=== PATIENT | female | born 1930 | race Caucasian/White ===

== ENCOUNTER → 2017-11-21 | Outpatient (CLI) | payer MEDICARE | END | disposition home or self-care (01) | DX: R91.8 Other nonspecific abnormal finding of lung field (principal) | CPT/HCPCS: 71045 ==

== ENCOUNTER 2017-11-22 11:37 | Inpatient (IN) | payer MEDICARE ==
[2017-11-22 12:22] LABS: ADD MAN DIFF? NO
[2017-11-22 12:38] LABS: BILIRUBIN,URINE NEGATIVE (NEG); CLARITY,URINE CLOUDY; COLOR,URINE YELLOW; GLUCOSE,URINE NEGATIVE (NEG); NITRITE,URINE NEGATIVE (NEG); PROTEIN,URINE 100 mg/dL (NEG-TRACE)
[2017-11-22 12:40] LABS: BASO % 0 % (0-3); EOS % 0 % (0-3); HEMATOCRIT 39.1 % (36.0-47.0); HEMOGLOBIN 12.6 g/dL (12.0-15.5); LYMPH # 0.7 x10^3/uL (1.0-4.8); LYMPH % 3 % (24-48); MEAN CORPUSCULAR HEMOGLOBIN 31 pg (25-35); MEAN CORPUSCULAR HGB CONC 32 g/dL (31-37); MEAN CORPUSCULAR VOLUME 95 fL (79-100); MONO # 1.5 x10^3/uL (0.0-1.1); MONO % 6 % (0-9); NEUT # 23.6 x10^3uL (1.8-7.7); NEUT % 91 % (31-73); PLATELET COUNT 393 x10^3/uL (140-400); RED BLOOD COUNT 4.12 x10^6/uL (3.50-5.40); RED CELL DISTRIBUTION WIDTH 13.8 % (11.5-14.5); WHITE BLOOD COUNT 25.9 x10^3/uL (4.0-11.0)
[2017-11-22 12:44] LABS: ANION GAP 9 (6-14); BLOOD UREA NITROGEN 22 mg/dL (7-20); BUN/CREATININE RATIO 31 (6-20); CALCIUM 8.5 mg/dL (8.5-10.1); CARBON DIOXIDE 36 mmol/L (21-32); CHLORIDE 95 mmol/L (98-107); CREATININE 0.7 mg/dL (0.6-1.0); GFR 79.5; GLUCOSE 125 mg/dL (70-99); POTASSIUM 3.1 mmol/L (3.5-5.1); SODIUM 140 mmol/L (136-145)
[2017-11-22 12:48] LABS: BACTERIA,URINE MANY /HPF (0-FEW)
[2017-11-22] MEDS: IV NORMAL SALINE 1000ML BAG 1,000 ML IV ×6 (12:48→19:50)
[2017-11-22] MEDS: methylPREDNISolone SOD SUCC PF 125 MG/2 ML VIAL. IV ×2 (12:48)
[2017-11-22 12:49] LABS: ALBUMIN 2.5 g/dL (3.4-5.0); ALBUMIN/GLOBULIN RATIO 0.5 (1.0-1.7); ALK PHOS 73 U/L (46-116); ALT (SGPT) 33 U/L (14-59); AST (SGOT) 24 U/L (15-37); TOTAL BILIRUBIN 0.8 mg/dL (0.2-1.0); TOTAL PROTEIN 7.3 g/dL (6.4-8.2)
[2017-11-22] MEDS: IPRATRPIUM/ALBUTEROL 0.5/2.5MG 3 ML NEBU. NEB ×6 (12:54→18:10)
[2017-11-22 12:57] LABS: CKMB MASS 1.6 ng/mL (0.0-3.6); CREATINE KINASE 41 U/L (26-192)
[2017-11-22] MEDS ORDERED: PIP/TAZO PER PHARMACY MC ×2 (13:00)
[2017-11-22] MEDS ORDERED: levOFLOXacin PER PHARMACY. MC ×2 (13:00)
[2017-11-22 13:04] LABS: LACTIC ACID 1.2 mmol/L (0.4-2.0)
[2017-11-22] MEDS ORDERED: ACETAMINOPHEN 325 MG TABLET. PO ×2 (13:15)
[2017-11-22] MEDS ORDERED: ONDANSETRON PF 4 MG/2 ML VIAL. IV ×2 (13:15)
[2017-11-22] MEDS: PIPERACILLIN/TAZOBACTAM 3.375 GM in IV DEXTROSE 5% 50 ML IV (13:25)
[2017-11-22 13:44] LABS: NT-PRO BNP 1171 pg/mL (0-449)
[2017-11-22] MEDS: VANCOMYCIN 1.25 GM in IV DEXTROSE 5% 250 ML IV (14:01)
[2017-11-22 16:51] LABS: LACTIC ACID 2.7 mmol/L (0.4-2.0)
[2017-11-22] MEDS: PIPERACILLIN/TAZOBACTAM 3.375 GM in IV NORMAL SALINE 50ML 50 ML IV ×2 (17:48→23:24)
[2017-11-22] MEDS: POTASSIUM CHLORIDE 20 MEQ TABLET.ER. PO ×2 (17:49)
[2017-11-22] MEDS: methylPREDNISolone SOD SUCC PF 40 MG/ML VIAL. IV ×4 (17:49→23:24)
[2017-11-22] MEDS: BUDESONIDE 0.5 MG/2 ML NEBU. NEB ×2 (18:09)
[2017-11-22] MEDS: LACTOBACILLUS RHAMNOSUS GG 1 CAPSULE. PO ×2 (20:54)
[2017-11-22] MEDS: METOPROLOL TART IMMED RELEASE 25 MG TABLET. PO ×2 (20:55)
[2017-11-22] MEDS: amLODIPine BESYLATE 2.5 MG TABLET PO ×2 (20:55)
[2017-11-22] MEDS: LATANOPROST 0.005% OPHTH SOLUTION 2.5ML BOTTLE. OU ×2 (20:55)
[2017-11-22 23:23] LABS: LACTIC ACID 1.2 mmol/L (0.4-2.0)
[2017-11-23] MEDS: IV NORMAL SALINE 1000ML BAG 1,000 ML IV ×2 (04:19)
[2017-11-23] MEDS: methylPREDNISolone SOD SUCC PF 40 MG/ML VIAL. IV ×8 (05:41→23:52)
[2017-11-23] MEDS: PIPERACILLIN/TAZOBACTAM 3.375 GM in IV NORMAL SALINE 50ML 50 ML IV ×4 (05:41→23:51)
[2017-11-23 05:47] LABS: ADD MAN DIFF? NO
[2017-11-23 06:02] LABS: BASO % 0 % (0-3); EOS % 0 % (0-3); HEMATOCRIT 32.6 % (36.0-47.0); HEMOGLOBIN 10.8 g/dL (12.0-15.5); LYMPH # 0.3 x10^3/uL (1.0-4.8); LYMPH % 1 % (24-48); MEAN CORPUSCULAR HEMOGLOBIN 31 pg (25-35); MEAN CORPUSCULAR HGB CONC 33 g/dL (31-37); MEAN CORPUSCULAR VOLUME 95 fL (79-100); MONO # 0.4 x10^3/uL (0.0-1.1); MONO % 2 % (0-9); NEUT # 19.4 x10^3uL (1.8-7.7); NEUT % 96 % (31-73); PLATELET COUNT 353 x10^3/uL (140-400); RED BLOOD COUNT 3.43 x10^6/uL (3.50-5.40); RED CELL DISTRIBUTION WIDTH 13.5 % (11.5-14.5); WHITE BLOOD COUNT 20.1 x10^3/uL (4.0-11.0)
[2017-11-23] MEDS: LEVOTHYROXINE 75 MCG TABLET PO ×2 (06:34)
[2017-11-23 07:16] LABS: ANION GAP 9 (6-14); BLOOD UREA NITROGEN 20 mg/dL (7-20); CARBON DIOXIDE 31 mmol/L (21-32); CHLORIDE 99 mmol/L (98-107); CREATININE 0.7 mg/dL (0.6-1.0); GFR 79.5; GLUCOSE 153 mg/dL (70-99); POTASSIUM 3.7 mmol/L (3.5-5.1); SODIUM 139 mmol/L (136-145)
[2017-11-23] MEDS: IPRATRPIUM/ALBUTEROL 0.5/2.5MG 3 ML NEBU. NEB ×8 (07:57→20:14)
[2017-11-23] MEDS: BUDESONIDE 0.5 MG/2 ML NEBU. NEB ×4 (07:57→20:14)
[2017-11-23] MEDS: FAMOTIDINE 20 MG TABLET. PO ×2 (09:22)
[2017-11-23] MEDS: CHOLECALCIFEROL (VITAMIN D3) 1,000 UNIT TABLET PO ×2 (09:22)
[2017-11-23] MEDS: LACTOBACILLUS RHAMNOSUS GG 1 CAPSULE. PO ×4 (09:22→20:30)
[2017-11-23] MEDS: amLODIPine BESYLATE 2.5 MG TABLET PO ×4 (09:22→20:31)
[2017-11-23] MEDS: METOPROLOL TART IMMED RELEASE 25 MG TABLET. PO ×4 (09:22→20:31)
[2017-11-23] MEDS: CLOPIDOGREL BISULFATE 75 MG TABLET PO ×2 (09:22)
[2017-11-23] MEDS: LORazepam 0.5 MG TABLET PO ×2 (09:22)
[2017-11-23] MEDS: MULTIVITAMIN with MINERAL TABLET. PO ×2 (09:22)
[2017-11-23] MEDS: VANCOMYCIN 750 MG in IV DEXTROSE 5% 250 ML IV (15:03)
[2017-11-23 15:16] LABS: MRSA BY PCR Negative (Negative)
[2017-11-23] MEDS: VANCOMYCIN PER PHARMACY MC ×6 (16:37→16:41)
[2017-11-23 17:26] LABS: ALBUMIN 1.9 g/dL (3.4-5.0); ALBUMIN/GLOBULIN RATIO 0.5 (1.0-1.7); ALK PHOS 55 U/L (46-116); ALT (SGPT) 24 U/L (14-59); ANION GAP 5 (6-14); AST (SGOT) 20 U/L (15-37); BLOOD UREA NITROGEN 20 mg/dL (7-20); BUN/CREATININE RATIO 25 (6-20); CALCIUM 7.6 mg/dL (8.5-10.1); CARBON DIOXIDE 32 mmol/L (21-32); CHLORIDE 102 mmol/L (98-107); CREATININE 0.8 mg/dL (0.6-1.0); GFR 68.2; GLUCOSE 218 mg/dL (70-99); POTASSIUM 3.2 mmol/L (3.5-5.1); SODIUM 139 mmol/L (136-145); TOTAL BILIRUBIN 0.3 mg/dL (0.2-1.0); TOTAL PROTEIN 6.1 g/dL (6.4-8.2)
[2017-11-23] MEDS: LATANOPROST 0.005% OPHTH SOLUTION 2.5ML BOTTLE. OU ×2 (22:09)
[2017-11-24] MEDS: methylPREDNISolone SOD SUCC PF 40 MG/ML VIAL. IV ×6 (05:36→17:36)
[2017-11-24] MEDS: PIPERACILLIN/TAZOBACTAM 3.375 GM in IV NORMAL SALINE 50ML 50 ML IV ×3 (05:36→17:36)
[2017-11-24] MEDS: MULTIVITAMIN with MINERAL TABLET. PO ×2 (08:10)
[2017-11-24] MEDS: LACTOBACILLUS RHAMNOSUS GG 1 CAPSULE. PO ×4 (08:10→20:50)
[2017-11-24] MEDS: LEVOTHYROXINE 75 MCG TABLET PO ×2 (08:10)
[2017-11-24] MEDS: amLODIPine BESYLATE 2.5 MG TABLET PO ×4 (08:10→20:51)
[2017-11-24] MEDS: METOPROLOL TART IMMED RELEASE 25 MG TABLET. PO ×4 (08:10→20:51)
[2017-11-24] MEDS: LORazepam 0.5 MG TABLET PO ×2 (08:10)
[2017-11-24] MEDS: FAMOTIDINE 20 MG TABLET. PO ×2 (08:10)
[2017-11-24] MEDS: CLOPIDOGREL BISULFATE 75 MG TABLET PO ×2 (08:11)
[2017-11-24] MEDS: CHOLECALCIFEROL (VITAMIN D3) 1,000 UNIT TABLET PO ×2 (08:11)
[2017-11-24] MEDS: IPRATRPIUM/ALBUTEROL 0.5/2.5MG 3 ML NEBU. NEB ×8 (08:59→20:28)
[2017-11-24] MEDS: BUDESONIDE 0.5 MG/2 ML NEBU. NEB ×4 (09:00→20:28)
[2017-11-24 14:16] LABS: VANC TR 7.3 mcg/mL (10.0-20.0)
[2017-11-24] MEDS: VANCOMYCIN 750 MG in IV DEXTROSE 5% 250 ML IV (14:24)
[2017-11-24] MEDS: VANCOMYCIN PER PHARMACY MC ×4 (14:28→15:00)
[2017-11-24] MEDS: ACETAMINOPHEN 325 MG TABLET. PO ×2 (17:37)
[2017-11-24] MEDS: LATANOPROST 0.005% OPHTH SOLUTION 2.5ML BOTTLE. OU ×2 (21:44)
[2017-11-25] MEDS: PIPERACILLIN/TAZOBACTAM 3.375 GM in IV NORMAL SALINE 50ML 50 ML IV ×4 (00:02→17:02)
[2017-11-25] MEDS: methylPREDNISolone SOD SUCC PF 40 MG/ML VIAL. IV ×8 (00:02→17:02)
[2017-11-25] MEDS: VANCOMYCIN 750 MG in IV DEXTROSE 5% 250 ML IV ×2 (01:50→14:37)
[2017-11-25 05:54] LABS: HEMATOCRIT 32.5 % (36.0-47.0); HEMOGLOBIN 10.9 g/dL (12.0-15.5); MEAN CORPUSCULAR HEMOGLOBIN 31 pg (25-35); MEAN CORPUSCULAR HGB CONC 34 g/dL (31-37); MEAN CORPUSCULAR VOLUME 93 fL (79-100); PLATELET COUNT 381 x10^3/uL (140-400); RED BLOOD COUNT 3.51 x10^6/uL (3.50-5.40); RED CELL DISTRIBUTION WIDTH 13.3 % (11.5-14.5); WHITE BLOOD COUNT 23.4 x10^3/uL (4.0-11.0)
[2017-11-25] MEDS: BUDESONIDE 0.5 MG/2 ML NEBU. NEB ×4 (07:33→20:28)
[2017-11-25] MEDS: IPRATRPIUM/ALBUTEROL 0.5/2.5MG 3 ML NEBU. NEB ×8 (07:33→20:28)
[2017-11-25] MEDS: LEVOTHYROXINE 75 MCG TABLET PO ×2 (09:42)
[2017-11-25] MEDS: CHOLECALCIFEROL (VITAMIN D3) 1,000 UNIT TABLET PO ×2 (09:43)
[2017-11-25] MEDS: CLOPIDOGREL BISULFATE 75 MG TABLET PO ×2 (09:43)
[2017-11-25] MEDS: LACTOBACILLUS RHAMNOSUS GG 1 CAPSULE. PO ×4 (09:43→21:00)
[2017-11-25] MEDS: METOPROLOL TART IMMED RELEASE 25 MG TABLET. PO ×4 (09:43→21:00)
[2017-11-25] MEDS: FAMOTIDINE 20 MG TABLET. PO ×2 (09:43)
[2017-11-25] MEDS: MULTIVITAMIN with MINERAL TABLET. PO ×2 (09:44)
[2017-11-25] MEDS: amLODIPine BESYLATE 2.5 MG TABLET PO ×4 (09:44→21:00)
[2017-11-25] MEDS: LORazepam 0.5 MG TABLET PO ×2 (09:44)
[2017-11-25] MEDS: VANCOMYCIN PER PHARMACY MC ×2 (15:17)
[2017-11-25] MEDS: NYSTATIN 100,000 UNITS/ML 5 ML ORAL.SUSP. SWSW ×4 (18:15→21:13)
[2017-11-25] MEDS: MICAFUNGIN 100 MG in IV DEXTROSE 5% 100 ML IV (18:17)
[2017-11-25] MEDS ORDERED: LORazepam 0.5 MG TABLET PO ×2 (18:30)
[2017-11-25] MEDS: LATANOPROST 0.005% OPHTH SOLUTION 2.5ML BOTTLE. OU ×2 (21:14)
[2017-11-26] MEDS: PIPERACILLIN/TAZOBACTAM 3.375 GM in IV NORMAL SALINE 50ML 50 ML IV ×4 (00:20→17:26)
[2017-11-26] MEDS: methylPREDNISolone SOD SUCC PF 40 MG/ML VIAL. IV ×8 (00:22→17:25)
[2017-11-26 01:56] LABS: VANC TR 15.7 mcg/mL (10.0-20.0)
[2017-11-26] MEDS: VANCOMYCIN PER PHARMACY MC ×2 (03:15)
[2017-11-26] MEDS: VANCOMYCIN 750 MG in IV DEXTROSE 5% 250 ML IV ×2 (03:26→14:14)
[2017-11-26] MEDS: IPRATRPIUM/ALBUTEROL 0.5/2.5MG 3 ML NEBU. NEB ×8 (08:05→20:35)
[2017-11-26] MEDS: BUDESONIDE 0.5 MG/2 ML NEBU. NEB ×4 (08:05→20:35)
[2017-11-26] MEDS: NYSTATIN 100,000 UNITS/ML 5 ML ORAL.SUSP. SWSW ×8 (10:14→21:13)
[2017-11-26] MEDS: LORazepam 0.5 MG TABLET PO ×2 (10:15)
[2017-11-26] MEDS: MULTIVITAMIN with MINERAL TABLET. PO ×2 (10:16)
[2017-11-26] MEDS: CHOLECALCIFEROL (VITAMIN D3) 1,000 UNIT TABLET PO ×2 (10:16)
[2017-11-26] MEDS: METOPROLOL TART IMMED RELEASE 25 MG TABLET. PO ×4 (12:28→21:13)
[2017-11-26] MEDS: amLODIPine BESYLATE 2.5 MG TABLET PO ×4 (12:29→21:13)
[2017-11-26] MEDS: LACTOBACILLUS RHAMNOSUS GG 1 CAPSULE. PO ×4 (12:29→21:13)
[2017-11-26] MEDS: CLOPIDOGREL BISULFATE 75 MG TABLET PO ×2 (12:29)
[2017-11-26] MEDS: FAMOTIDINE 20 MG TABLET. PO ×2 (12:29)
[2017-11-26] MEDS: LEVOTHYROXINE 75 MCG TABLET PO ×2 (12:29)
[2017-11-26] MEDS: MICAFUNGIN 100 MG in IV DEXTROSE 5% 100 ML IV (18:26)
[2017-11-26] MEDS: LATANOPROST 0.005% OPHTH SOLUTION 2.5ML BOTTLE. OU ×2 (21:14)
[2017-11-27] MEDS: methylPREDNISolone SOD SUCC PF 40 MG/ML VIAL. IV ×6 (00:37→21:56)
[2017-11-27] MEDS: PIPERACILLIN/TAZOBACTAM 3.375 GM in IV NORMAL SALINE 50ML 50 ML IV ×5 (00:38→23:24)
[2017-11-27 06:33] LABS: CREATININE 0.8 mg/dL (0.6-1.0)
[2017-11-27 06:33] LABS: GFR 68.2
[2017-11-27] MEDS: IPRATRPIUM/ALBUTEROL 0.5/2.5MG 3 ML NEBU. NEB ×8 (07:31→20:15)
[2017-11-27] MEDS: BUDESONIDE 0.5 MG/2 ML NEBU. NEB ×4 (07:31→20:16)
[2017-11-27] MEDS: POTASSIUM CHLORIDE 20 MEQ TABLET.ER. PO ×2 (10:10)
[2017-11-27] MEDS: NYSTATIN 100,000 UNITS/ML 5 ML ORAL.SUSP. SWSW ×8 (10:10→21:56)
[2017-11-27] MEDS: MULTIVITAMIN with MINERAL TABLET. PO ×2 (10:11)
[2017-11-27] MEDS: CLOPIDOGREL BISULFATE 75 MG TABLET PO ×2 (10:11)
[2017-11-27] MEDS: CHOLECALCIFEROL (VITAMIN D3) 1,000 UNIT TABLET PO ×2 (10:11)
[2017-11-27] MEDS: LACTOBACILLUS RHAMNOSUS GG 1 CAPSULE. PO ×4 (10:11→21:56)
[2017-11-27] MEDS: LEVOTHYROXINE 75 MCG TABLET PO ×2 (10:11)
[2017-11-27] MEDS: LORazepam 0.5 MG TABLET PO ×2 (10:11)
[2017-11-27] MEDS: METOPROLOL TART IMMED RELEASE 25 MG TABLET. PO ×4 (10:12→21:59)
[2017-11-27] MEDS: amLODIPine BESYLATE 2.5 MG TABLET PO ×4 (10:12→22:00)
[2017-11-27] MEDS: FAMOTIDINE 20 MG TABLET. PO ×2 (10:12)
[2017-11-27] MEDS: LATANOPROST 0.005% OPHTH SOLUTION 2.5ML BOTTLE. OU ×2 (21:54)
[2017-11-28] MEDS: PIPERACILLIN/TAZOBACTAM 3.375 GM in IV NORMAL SALINE 50ML 50 ML IV ×2 (05:18→12:16)
[2017-11-28 05:41] LABS: ADD MAN DIFF? NO
[2017-11-28 05:50] LABS: BASO % 0 % (0-3); EOS % 0 % (0-3); HEMATOCRIT 34.3 % (36.0-47.0); HEMOGLOBIN 11.4 g/dL (12.0-15.5); LYMPH # 0.2 x10^3/uL (1.0-4.8); LYMPH % 1 % (24-48); MEAN CORPUSCULAR HEMOGLOBIN 31 pg (25-35); MEAN CORPUSCULAR HGB CONC 33 g/dL (31-37); MEAN CORPUSCULAR VOLUME 93 fL (79-100); MONO # 0.6 x10^3/uL (0.0-1.1); MONO % 2 % (0-9); NEUT # 23.6 x10^3uL (1.8-7.7); NEUT % 97 % (31-73); PLATELET COUNT 404 x10^3/uL (140-400); RED BLOOD COUNT 3.67 x10^6/uL (3.50-5.40); RED CELL DISTRIBUTION WIDTH 13.6 % (11.5-14.5); WHITE BLOOD COUNT 24.5 x10^3/uL (4.0-11.0)
[2017-11-28 06:52] LABS: ANION GAP 6 (6-14); BLOOD UREA NITROGEN 19 mg/dL (7-20); CALCIUM 7.7 mg/dL (8.5-10.1); CARBON DIOXIDE 36 mmol/L (21-32); CHLORIDE 103 mmol/L (98-107); CREATININE 0.8 mg/dL (0.6-1.0); GFR 68.2; GLUCOSE 181 mg/dL (70-99); POTASSIUM 3.4 mmol/L (3.5-5.1); SODIUM 145 mmol/L (136-145)
[2017-11-28] MEDS: BUDESONIDE 0.5 MG/2 ML NEBU. NEB ×4 (08:00→19:53)
[2017-11-28] MEDS: IPRATRPIUM/ALBUTEROL 0.5/2.5MG 3 ML NEBU. NEB ×8 (08:00→19:53)
[2017-11-28] MEDS: CLOPIDOGREL BISULFATE 75 MG TABLET PO ×2 (08:40)
[2017-11-28] MEDS: LACTOBACILLUS RHAMNOSUS GG 1 CAPSULE. PO ×4 (08:40→21:55)
[2017-11-28] MEDS: LORazepam 0.5 MG TABLET PO ×2 (08:40)
[2017-11-28] MEDS: MULTIVITAMIN with MINERAL TABLET. PO ×2 (08:40)
[2017-11-28] MEDS: FAMOTIDINE 20 MG TABLET. PO ×2 (08:40)
[2017-11-28] MEDS: LEVOTHYROXINE 75 MCG TABLET PO ×2 (08:40)
[2017-11-28] MEDS: CHOLECALCIFEROL (VITAMIN D3) 1,000 UNIT TABLET PO ×2 (08:40)
[2017-11-28] MEDS: METOPROLOL TART IMMED RELEASE 25 MG TABLET. PO ×4 (08:40→21:58)
[2017-11-28] MEDS: methylPREDNISolone SOD SUCC PF 125 MG/2 ML VIAL. IV ×2 (08:41)
[2017-11-28] MEDS: amLODIPine BESYLATE 2.5 MG TABLET PO ×4 (08:41→21:56)
[2017-11-28] MEDS: NYSTATIN 100,000 UNITS/ML 5 ML ORAL.SUSP. SWSW ×8 (08:41→21:55)
[2017-11-28] MEDS: BARIUM SULFATE 40% (APPLE) 148 GM PWD. PO ×2 (14:46)
[2017-11-28] MEDS: AMOXICILLIN/K CLAV 500/125MG TABLET. PO ×2 (21:55)
[2017-11-28] MEDS: LATANOPROST 0.005% OPHTH SOLUTION 2.5ML BOTTLE. OU ×2 (22:08)
[2017-11-29] MEDS: BUDESONIDE 0.5 MG/2 ML NEBU. NEB ×4 (07:42→20:08)
[2017-11-29] MEDS: IPRATRPIUM/ALBUTEROL 0.5/2.5MG 3 ML NEBU. NEB ×8 (07:42→20:08)
[2017-11-29] MEDS: CHOLECALCIFEROL (VITAMIN D3) 1,000 UNIT TABLET PO ×2 (08:22)
[2017-11-29] MEDS: AMOXICILLIN/K CLAV 500/125MG TABLET. PO ×4 (08:23→23:26)
[2017-11-29] MEDS: METOPROLOL TART IMMED RELEASE 25 MG TABLET. PO ×4 (08:23→21:38)
[2017-11-29] MEDS: amLODIPine BESYLATE 2.5 MG TABLET PO ×4 (08:23→21:39)
[2017-11-29] MEDS: LEVOTHYROXINE 75 MCG TABLET PO ×2 (08:23)
[2017-11-29] MEDS: LACTOBACILLUS RHAMNOSUS GG 1 CAPSULE. PO ×4 (08:23→21:38)
[2017-11-29] MEDS: MULTIVITAMIN with MINERAL TABLET. PO ×2 (08:23)
[2017-11-29] MEDS: CLOPIDOGREL BISULFATE 75 MG TABLET PO ×2 (08:23)
[2017-11-29] MEDS: methylPREDNISolone SOD SUCC PF 125 MG/2 ML VIAL. IV ×2 (08:24)
[2017-11-29] MEDS: LORazepam 0.5 MG TABLET PO ×2 (08:24)
[2017-11-29] MEDS: NYSTATIN 100,000 UNITS/ML 5 ML ORAL.SUSP. SWSW ×8 (08:24→21:39)
[2017-11-29] MEDS: FAMOTIDINE 20 MG TABLET. PO ×2 (08:39)
[2017-11-29] MEDS: LATANOPROST 0.005% OPHTH SOLUTION 2.5ML BOTTLE. OU ×2 (21:36)
[2017-11-30] MEDS: BUDESONIDE 0.5 MG/2 ML NEBU. NEB ×4 (07:21→19:48)
[2017-11-30] MEDS: IPRATRPIUM/ALBUTEROL 0.5/2.5MG 3 ML NEBU. NEB ×8 (07:21→19:48)
[2017-11-30] MEDS: LACTOBACILLUS RHAMNOSUS GG 1 CAPSULE. PO ×4 (09:36→20:34)
[2017-11-30] MEDS: amLODIPine BESYLATE 2.5 MG TABLET PO ×4 (09:36→20:34)
[2017-11-30] MEDS: LORazepam 0.5 MG TABLET PO ×2 (09:36)
[2017-11-30] MEDS: NYSTATIN 100,000 UNITS/ML 5 ML ORAL.SUSP. SWSW ×8 (09:36→20:29)
[2017-11-30] MEDS: METOPROLOL TART IMMED RELEASE 25 MG TABLET. PO ×4 (09:37→20:34)
[2017-11-30] MEDS: CHOLECALCIFEROL (VITAMIN D3) 1,000 UNIT TABLET PO ×2 (09:37)
[2017-11-30] MEDS: predniSONE 10 MG TABLET PO ×2 (09:37)
[2017-11-30] MEDS: MULTIVITAMIN with MINERAL TABLET. PO ×2 (09:37)
[2017-11-30] MEDS: FAMOTIDINE 20 MG TABLET. PO ×2 (09:37)
[2017-11-30] MEDS: CLOPIDOGREL BISULFATE 75 MG TABLET PO ×2 (09:37)
[2017-11-30] MEDS: LEVOTHYROXINE 75 MCG TABLET PO ×2 (09:38)
[2017-11-30] MEDS: AMOXICILLIN/K CLAV 500/125MG TABLET. PO ×4 (09:42→20:32)
[2017-11-30] MEDS: LATANOPROST 0.005% OPHTH SOLUTION 2.5ML BOTTLE. OU ×2 (20:35)
[2017-12-01 05:25] LABS: BASO % 0 % (0-3); EOS # 0.1 x10^3/uL (0.0-0.7); EOS % 1 % (0-3); HEMATOCRIT 36.1 % (36.0-47.0); HEMOGLOBIN 11.8 g/dL (12.0-15.5); LYMPH # 0.8 x10^3/uL (1.0-4.8); LYMPH % 5 % (24-48); MEAN CORPUSCULAR HEMOGLOBIN 31 pg (25-35); MEAN CORPUSCULAR HGB CONC 33 g/dL (31-37); MEAN CORPUSCULAR VOLUME 94 fL (79-100); MONO # 0.6 x10^3/uL (0.0-1.1); MONO % 4 % (0-9); NEUT # 15.4 x10^3uL (1.8-7.7); NEUT % 91 % (31-73); PLATELET COUNT 357 x10^3/uL (140-400); RED BLOOD COUNT 3.86 x10^6/uL (3.50-5.40); RED CELL DISTRIBUTION WIDTH 13.6 % (11.5-14.5); WHITE BLOOD COUNT 16.9 x10^3/uL (4.0-11.0)
[2017-12-01 05:34] LABS: ADD MAN DIFF? YES
[2017-12-01 05:43] LABS: ANION GAP 3 (6-14); BLOOD UREA NITROGEN 24 mg/dL (7-20); CALCIUM 8.2 mg/dL (8.5-10.1); CARBON DIOXIDE 38 mmol/L (21-32); CHLORIDE 101 mmol/L (98-107); CREATININE 0.9 mg/dL (0.6-1.0); GFR 59.5; GLUCOSE 110 mg/dL (70-99); POTASSIUM 3.5 mmol/L (3.5-5.1); SODIUM 142 mmol/L (136-145)
[2017-12-01 06:56] LABS: % LYMPHS 5 % (24-48); % MONOS 6 % (0-10); % SEGS 89 % (35-66); PLT ESTIMATE ADEQUATE (ADEQUATE)
[2017-12-01 07:44] LABS: ADD MAN DIFF? NO
[2017-12-01 07:45] LABS: BASO % 0 % (0-3); EOS # 0.2 x10^3/uL (0.0-0.7); EOS % 1 % (0-3); HEMOGLOBIN 10.6 g/dL (12.0-15.5); LYMPH % 5 % (24-48); MEAN CORPUSCULAR HEMOGLOBIN 31 pg (25-35); MEAN CORPUSCULAR HGB CONC 33 g/dL (31-37); MEAN CORPUSCULAR VOLUME 93 fL (79-100); MONO # 0.6 x10^3/uL (0.0-1.1); MONO % 3 % (0-9); NEUT # 18.4 x10^3uL (1.8-7.7); NEUT % 91 % (31-73); PLATELET COUNT 351 x10^3/uL (140-400); RED BLOOD COUNT 3.42 x10^6/uL (3.50-5.40); RED CELL DISTRIBUTION WIDTH 13.5 % (11.5-14.5); WHITE BLOOD COUNT 20.2 x10^3/uL (4.0-11.0)
[2017-12-01] MEDS: IPRATRPIUM/ALBUTEROL 0.5/2.5MG 3 ML NEBU. NEB ×8 (08:19→20:06)
[2017-12-01] MEDS: BUDESONIDE 0.5 MG/2 ML NEBU. NEB ×4 (08:20→20:06)
[2017-12-01] MEDS: amLODIPine BESYLATE 2.5 MG TABLET PO ×4 (09:00→21:21)
[2017-12-01] MEDS: METOPROLOL TART IMMED RELEASE 25 MG TABLET. PO ×6 (09:00→21:21)
[2017-12-01] MEDS: NYSTATIN 100,000 UNITS/ML 5 ML ORAL.SUSP. SWSW ×8 (09:00→21:21)
[2017-12-01] MEDS: LORazepam 0.5 MG TABLET PO ×4 (09:00→18:25)
[2017-12-01 09:24] LABS: HEMATOCRIT 28.7 % (36.0-47.0); HEMOGLOBIN 9.4 g/dL (12.0-15.5); MEAN CORPUSCULAR HGB CONC 33 g/dL (31-37)
[2017-12-01 09:38] LABS: BASE EXCESS ABG 5 mmol/L (-3-3); HCO3 ABG 31 mmol/L (21-28); PCO2 ABG 51 mmHg (35-46); PO2 ABG 163 mmHg (65-108); SAT O2 ABG 99 % (92-99)
[2017-12-01 10:07] LABS: FIO2 ABG 100
[2017-12-01] MEDS: IV NORMAL SALINE 500ML BAG 500 ML IV ×4 (10:15)
[2017-12-01] MEDS: IV NORMAL SALINE 1000ML BAG 1,000 ML IV ×2 (10:15)
[2017-12-01] MEDS: FAMOTIDINE 20 MG TABLET. PO ×2 (12:02)
[2017-12-01] MEDS: predniSONE 10 MG TABLET PO ×2 (12:02)
[2017-12-01] MEDS: AMOXICILLIN/K CLAV 500/125MG TABLET. PO ×4 (12:02→21:21)
[2017-12-01] MEDS: LEVOTHYROXINE 75 MCG TABLET PO ×2 (12:02)
[2017-12-01] MEDS: LACTOBACILLUS RHAMNOSUS GG 1 CAPSULE. PO ×4 (12:16→21:21)
[2017-12-01] MEDS: MULTIVITAMIN with MINERAL TABLET. PO ×2 (12:16)
[2017-12-01] MEDS: CHOLECALCIFEROL (VITAMIN D3) 1,000 UNIT TABLET PO ×2 (12:16)
[2017-12-01 13:46] LABS: HEMOGLOBIN 7.8 g/dL (12.0-15.5); MEAN CORPUSCULAR HEMOGLOBIN 31 pg (25-35); MEAN CORPUSCULAR HGB CONC 33 g/dL (31-37); MEAN CORPUSCULAR VOLUME 95 fL (79-100); PLATELET COUNT 273 x10^3/uL (140-400); RED BLOOD COUNT 2.53 x10^6/uL (3.50-5.40); RED CELL DISTRIBUTION WIDTH 13.8 % (11.5-14.5); WHITE BLOOD COUNT 24.6 x10^3/uL (4.0-11.0)
[2017-12-01] MEDS ORDERED: LIDOCAINE 2% TOPICAL JELLY 5GM TUBE. TP ×2 (14:30)
[2017-12-01] MEDS: LIDOCAINE 2%/EPI 1:100,000 20 ML VIAL. IJ ×2 (14:45)
[2017-12-01 19:22] LABS: HEMOGLOBIN 10.4 g/dL (12.0-15.5); MEAN CORPUSCULAR HEMOGLOBIN 31 pg (25-35); MEAN CORPUSCULAR HGB CONC 33 g/dL (31-37); MEAN CORPUSCULAR VOLUME 93 fL (79-100); PLATELET COUNT 251 x10^3/uL (140-400); RED BLOOD COUNT 3.34 x10^6/uL (3.50-5.40); RED CELL DISTRIBUTION WIDTH 13.9 % (11.5-14.5); WHITE BLOOD COUNT 33.6 x10^3/uL (4.0-11.0)
[2017-12-01] MEDS: LATANOPROST 0.005% OPHTH SOLUTION 2.5ML BOTTLE. OU ×2 (21:00)
[2017-12-02] MEDS: IV NORMAL SALINE 1000ML BAG 1,000 ML IV ×6 (04:22→22:45)
[2017-12-02] MEDS: BUDESONIDE 0.5 MG/2 ML NEBU. NEB ×4 (08:32→20:30)
[2017-12-02] MEDS: IPRATRPIUM/ALBUTEROL 0.5/2.5MG 3 ML NEBU. NEB ×8 (08:32→20:30)
[2017-12-02] MEDS: CHOLECALCIFEROL (VITAMIN D3) 1,000 UNIT TABLET PO ×2 (08:44)
[2017-12-02] MEDS: AMOXICILLIN/K CLAV 500/125MG TABLET. PO ×4 (08:44→22:06)
[2017-12-02] MEDS: MULTIVITAMIN with MINERAL TABLET. PO ×2 (08:46)
[2017-12-02] MEDS: METOPROLOL TART IMMED RELEASE 25 MG TABLET. PO ×4 (08:46→22:06)
[2017-12-02] MEDS: LACTOBACILLUS RHAMNOSUS GG 1 CAPSULE. PO ×4 (08:46→22:06)
[2017-12-02] MEDS: FAMOTIDINE 20 MG TABLET. PO ×2 (08:46)
[2017-12-02] MEDS: LEVOTHYROXINE 75 MCG TABLET PO ×2 (08:46)
[2017-12-02] MEDS: LORazepam 0.5 MG TABLET PO ×2 (08:46)
[2017-12-02] MEDS: predniSONE 20 MG TABLET PO ×2 (08:46)
[2017-12-02] MEDS: NYSTATIN 100,000 UNITS/ML 5 ML ORAL.SUSP. SWSW ×8 (08:47→22:06)
[2017-12-02] MEDS: amLODIPine BESYLATE 2.5 MG TABLET PO ×4 (08:47→22:07)
[2017-12-02] MEDS: LATANOPROST 0.005% OPHTH SOLUTION 2.5ML BOTTLE. OU ×2 (22:43)
[2017-12-03] MEDS: BUDESONIDE 0.5 MG/2 ML NEBU. NEB ×4 (07:09→19:19)
[2017-12-03] MEDS: IPRATRPIUM/ALBUTEROL 0.5/2.5MG 3 ML NEBU. NEB ×8 (07:09→19:19)
[2017-12-03] MEDS: amLODIPine BESYLATE 2.5 MG TABLET PO ×4 (09:00→20:32)
[2017-12-03] MEDS: LORazepam 0.5 MG TABLET PO ×2 (09:00)
[2017-12-03] MEDS: METOPROLOL TART IMMED RELEASE 25 MG TABLET. PO ×4 (09:00→20:32)
[2017-12-03] MEDS: IV NORMAL SALINE 500ML BAG 500 ML IV ×4 (09:15→18:02)
[2017-12-03] MEDS: AMOXICILLIN/K CLAV 500/125MG TABLET. PO ×2 (09:31)
[2017-12-03] MEDS: predniSONE 20 MG TABLET PO ×2 (09:31)
[2017-12-03] MEDS: LEVOTHYROXINE 75 MCG TABLET PO ×2 (09:31)
[2017-12-03] MEDS: LACTOBACILLUS RHAMNOSUS GG 1 CAPSULE. PO ×4 (09:32→20:30)
[2017-12-03] MEDS: CHOLECALCIFEROL (VITAMIN D3) 1,000 UNIT TABLET PO ×2 (09:32)
[2017-12-03] MEDS: FAMOTIDINE 20 MG TABLET. PO ×2 (09:32)
[2017-12-03] MEDS: NYSTATIN 100,000 UNITS/ML 5 ML ORAL.SUSP. SWSW ×8 (09:32→20:32)
[2017-12-03] MEDS: MULTIVITAMIN with MINERAL TABLET. PO ×2 (09:36)
[2017-12-03 09:44] LABS: BASO % 0 % (0-3); EOS % 0 % (0-3); HEMATOCRIT 25.4 % (36.0-47.0); HEMOGLOBIN 8.2 g/dL (12.0-15.5); LYMPH # 0.6 x10^3/uL (1.0-4.8); LYMPH % 1 % (24-48); MEAN CORPUSCULAR HEMOGLOBIN 30 pg (25-35); MEAN CORPUSCULAR HGB CONC 32 g/dL (31-37); MEAN CORPUSCULAR VOLUME 94 fL (79-100); MONO # 0.8 x10^3/uL (0.0-1.1); MONO % 2 % (0-9); NEUT # 38.4 x10^3uL (1.8-7.7); NEUT % 97 % (31-73); PLATELET COUNT 214 x10^3/uL (140-400); RED BLOOD COUNT 2.72 x10^6/uL (3.50-5.40); WHITE BLOOD COUNT 39.8 x10^3/uL (4.0-11.0)
[2017-12-03 09:48] LABS: ADD MAN DIFF? YES
[2017-12-03 09:59] LABS: ANION GAP 7 (6-14); BLOOD UREA NITROGEN 19 mg/dL (7-20); CALCIUM 7.4 mg/dL (8.5-10.1); CARBON DIOXIDE 29 mmol/L (21-32); CHLORIDE 110 mmol/L (98-107); CREATININE 0.7 mg/dL (0.6-1.0); GFR 79.5; GLUCOSE 123 mg/dL (70-99); POTASSIUM 3.1 mmol/L (3.5-5.1); SODIUM 146 mmol/L (136-145)
[2017-12-03 11:33] LABS: % BANDS 2 % (0-9); % LYMPHS 4 % (24-48); % MONOS 1 % (0-10); % SEGS 93 % (35-66); PLT ESTIMATE ADEQUATE (ADEQUATE)
[2017-12-03] MEDS: IV NORMAL SALINE 1000ML BAG 1,000 ML IV ×2 (12:15)
[2017-12-03 12:44] LABS: FECAL OB PT POSITIVE (NEG); NEG OBC FOB NEG; POS OBC FOB POS
[2017-12-03] MEDS: PIPERACILLIN/TAZOBACTAM 3.375 GM in IV NORMAL SALINE 50ML 50 ML IV ×3 (13:36→23:54)
[2017-12-03] MEDS: AMINO AC 3%/ELECTROLYTE/GLYCER 1,000 ML IV ×2 (16:24)
[2017-12-03 18:43] LABS: HEMATOCRIT 22.4 % (36.0-47.0); HEMOGLOBIN 7.5 g/dL (12.0-15.5); MEAN CORPUSCULAR HEMOGLOBIN 31 pg (25-35); MEAN CORPUSCULAR HGB CONC 33 g/dL (31-37); MEAN CORPUSCULAR VOLUME 93 fL (79-100); PLATELET COUNT 190 x10^3/uL (140-400); RED BLOOD COUNT 2.41 x10^6/uL (3.50-5.40); RED CELL DISTRIBUTION WIDTH 14.2 % (11.5-14.5); WHITE BLOOD COUNT 30.9 x10^3/uL (4.0-11.0)
[2017-12-03] MEDS: LATANOPROST 0.005% OPHTH SOLUTION 2.5ML BOTTLE. OU ×2 (20:32)
[2017-12-03] MEDS: ACETAMINOPHEN 325 MG TABLET. PO ×2 (20:57)
[2017-12-04 04:50] LABS: ADD MAN DIFF? NO
[2017-12-04 05:07] LABS: BASO % 0 % (0-3); EOS % 0 % (0-3); HEMATOCRIT 24.3 % (36.0-47.0); HEMOGLOBIN 7.9 g/dL (12.0-15.5); LYMPH # 0.4 x10^3/uL (1.0-4.8); LYMPH % 1 % (24-48); MEAN CORPUSCULAR HEMOGLOBIN 30 pg (25-35); MEAN CORPUSCULAR HGB CONC 32 g/dL (31-37); MEAN CORPUSCULAR VOLUME 94 fL (79-100); MONO # 0.4 x10^3/uL (0.0-1.1); MONO % 1 % (0-9); NEUT # 29.3 x10^3uL (1.8-7.7); NEUT % 97 % (31-73); PLATELET COUNT 205 x10^3/uL (140-400); RED BLOOD COUNT 2.59 x10^6/uL (3.50-5.40); RED CELL DISTRIBUTION WIDTH 14.3 % (11.5-14.5); WHITE BLOOD COUNT 30.1 x10^3/uL (4.0-11.0)
[2017-12-04] MEDS: LEVOTHYROXINE 75 MCG TABLET PO ×2 (05:17)
[2017-12-04] MEDS: PIPERACILLIN/TAZOBACTAM 3.375 GM in IV NORMAL SALINE 50ML 50 ML IV ×4 (05:17→23:53)
[2017-12-04] MEDS: AMINO AC 3%/ELECTROLYTE/GLYCER 1,000 ML IV ×4 (05:18→17:52)
[2017-12-04 05:39] LABS: ANION GAP 7 (6-14); BLOOD UREA NITROGEN 21 mg/dL (7-20); CALCIUM 7.4 mg/dL (8.5-10.1); CARBON DIOXIDE 28 mmol/L (21-32); CHLORIDE 109 mmol/L (98-107); CREATININE 0.7 mg/dL (0.6-1.0); GFR 79.5; GLUCOSE 153 mg/dL (70-99); SODIUM 144 mmol/L (136-145)
[2017-12-04] MEDS: IPRATRPIUM/ALBUTEROL 0.5/2.5MG 3 ML NEBU. NEB ×8 (07:16→19:39)
[2017-12-04] MEDS: BUDESONIDE 0.5 MG/2 ML NEBU. NEB ×4 (07:16→19:39)
[2017-12-04] MEDS: POTASSIUM CHLORIDE 20 MEQ TABLET.ER. PO ×2 (08:28)
[2017-12-04] MEDS: DIPHENOXYLATE/ATROPINE TABLET. PO ×2 (08:28)
[2017-12-04] MEDS: LACTOBACILLUS RHAMNOSUS GG 1 CAPSULE. PO ×4 (08:28→20:42)
[2017-12-04] MEDS: NYSTATIN 100,000 UNITS/ML 5 ML ORAL.SUSP. SWSW ×8 (08:28→20:42)
[2017-12-04] MEDS: LORazepam 0.5 MG TABLET PO ×2 (08:29)
[2017-12-04] MEDS: amLODIPine BESYLATE 2.5 MG TABLET PO ×4 (08:29→20:42)
[2017-12-04] MEDS: CHOLECALCIFEROL (VITAMIN D3) 1,000 UNIT TABLET PO ×2 (08:30)
[2017-12-04] MEDS: predniSONE 10 MG TABLET PO ×2 (08:30)
[2017-12-04] MEDS: MULTIVITAMIN with MINERAL TABLET. PO ×2 (08:30)
[2017-12-04] MEDS: METOPROLOL TART IMMED RELEASE 25 MG TABLET. PO ×4 (08:32→20:41)
[2017-12-04 11:21] LABS: IMMEDIATE SPIN CROSSMATCH 1 2
[2017-12-04] MEDS: FAMOTIDINE 20 MG TABLET. PO ×2 (12:32)
[2017-12-04 14:44] LABS: C DIFF BY PCR Positive (Negative)
[2017-12-04] MEDS: VANCOMYCIN 125 MG/2.5 ML ORAL SOLUTION. PO ×4 (17:51→20:42)
[2017-12-04] MEDS: metroNIDAZOLE 500 MG TABLET PO ×4 (17:51→20:42)
[2017-12-04] MEDS: LATANOPROST 0.005% OPHTH SOLUTION 2.5ML BOTTLE. OU ×2 (20:43)
[2017-12-05] MEDS: PIPERACILLIN/TAZOBACTAM 3.375 GM in IV NORMAL SALINE 50ML 50 ML IV ×2 (05:34→11:42)
[2017-12-05] MEDS: AMINO AC 3%/ELECTROLYTE/GLYCER 1,000 ML IV ×4 (05:34→17:06)
[2017-12-05 06:05] LABS: ADD MAN DIFF? NO
[2017-12-05 06:32] LABS: BASO % 0 % (0-3); EOS # 0.1 x10^3/uL (0.0-0.7); EOS % 1 % (0-3); HEMATOCRIT 29.8 % (36.0-47.0); HEMOGLOBIN 9.9 g/dL (12.0-15.5); LYMPH # 0.4 x10^3/uL (1.0-4.8); LYMPH % 2 % (24-48); MEAN CORPUSCULAR HEMOGLOBIN 31 pg (25-35); MEAN CORPUSCULAR HGB CONC 33 g/dL (31-37); MEAN CORPUSCULAR VOLUME 93 fL (79-100); MONO # 0.4 x10^3/uL (0.0-1.1); MONO % 2 % (0-9); NEUT # 17.5 x10^3uL (1.8-7.7); NEUT % 95 % (31-73); PLATELET COUNT 206 x10^3/uL (140-400); RED BLOOD COUNT 3.21 x10^6/uL (3.50-5.40); RED CELL DISTRIBUTION WIDTH 15.2 % (11.5-14.5); WHITE BLOOD COUNT 18.5 x10^3/uL (4.0-11.0)
[2017-12-05 06:33] LABS: ANION GAP 6 (6-14); BLOOD UREA NITROGEN 24 mg/dL (7-20); CALCIUM 7.6 mg/dL (8.5-10.1); CARBON DIOXIDE 28 mmol/L (21-32); CHLORIDE 106 mmol/L (98-107); CREATININE 0.6 mg/dL (0.6-1.0); GLUCOSE 132 mg/dL (70-99); POTASSIUM 3.8 mmol/L (3.5-5.1); SODIUM 140 mmol/L (136-145)
[2017-12-05] MEDS: LEVOTHYROXINE 75 MCG TABLET PO ×2 (07:42)
[2017-12-05] MEDS: IPRATRPIUM/ALBUTEROL 0.5/2.5MG 3 ML NEBU. NEB ×8 (07:53→19:28)
[2017-12-05] MEDS: BUDESONIDE 0.5 MG/2 ML NEBU. NEB ×4 (07:53→19:28)
[2017-12-05] MEDS: LACTOBACILLUS RHAMNOSUS GG 1 CAPSULE. PO ×4 (08:43→21:36)
[2017-12-05] MEDS: LORazepam 0.5 MG TABLET PO ×2 (08:43)
[2017-12-05] MEDS: CHOLECALCIFEROL (VITAMIN D3) 1,000 UNIT TABLET PO ×2 (08:43)
[2017-12-05] MEDS: predniSONE 10 MG TABLET PO ×2 (08:43)
[2017-12-05] MEDS: metroNIDAZOLE 500 MG TABLET PO ×2 (08:43)
[2017-12-05] MEDS: MULTIVITAMIN with MINERAL TABLET. PO ×2 (08:43)
[2017-12-05] MEDS: NYSTATIN 100,000 UNITS/ML 5 ML ORAL.SUSP. SWSW ×8 (08:43→21:36)
[2017-12-05] MEDS: VANCOMYCIN 125 MG/2.5 ML ORAL SOLUTION. PO ×8 (08:46→21:36)
[2017-12-05] MEDS: FAMOTIDINE 20 MG TABLET. PO ×2 (08:46)
[2017-12-05] MEDS: METOPROLOL TART IMMED RELEASE 25 MG TABLET. PO ×4 (08:46→21:36)
[2017-12-05] MEDS: LATANOPROST 0.005% OPHTH SOLUTION 2.5ML BOTTLE. OU ×2 (21:36)
[2017-12-06] MEDS: AMINO AC 3%/ELECTROLYTE/GLYCER 1,000 ML IV ×4 (03:45→16:15)
[2017-12-06] MEDS: BUDESONIDE 0.5 MG/2 ML NEBU. NEB ×4 (07:24→20:30)
[2017-12-06] MEDS: IPRATRPIUM/ALBUTEROL 0.5/2.5MG 3 ML NEBU. NEB ×8 (07:24→20:30)
[2017-12-06] MEDS: LEVOTHYROXINE 75 MCG TABLET PO ×2 (07:53)
[2017-12-06] MEDS: FAMOTIDINE 20 MG TABLET. PO ×2 (09:32)
[2017-12-06] MEDS: CHOLECALCIFEROL (VITAMIN D3) 1,000 UNIT TABLET PO ×2 (09:32)
[2017-12-06] MEDS: predniSONE 5 MG TABLET PO ×2 (09:32)
[2017-12-06] MEDS: NYSTATIN 100,000 UNITS/ML 5 ML ORAL.SUSP. SWSW ×4 (09:32→13:00)
[2017-12-06] MEDS: LORazepam 0.5 MG TABLET PO ×2 (09:32)
[2017-12-06] MEDS: LACTOBACILLUS RHAMNOSUS GG 1 CAPSULE. PO ×4 (09:32→21:52)
[2017-12-06] MEDS: MULTIVITAMIN with MINERAL TABLET. PO ×2 (09:32)
[2017-12-06] MEDS: VANCOMYCIN 125 MG/2.5 ML ORAL SOLUTION. PO ×8 (09:32→21:52)
[2017-12-06] MEDS: METOPROLOL TART IMMED RELEASE 25 MG TABLET. PO ×4 (09:32→21:53)
[2017-12-06] MEDS: FUROSEMIDE 40 MG/4 ML VIAL. IVP ×4 (12:30→17:30)
[2017-12-06] MEDS: LATANOPROST 0.005% OPHTH SOLUTION 2.5ML BOTTLE. OU ×2 (21:52)
[2017-12-06] MEDS: ZOLPIDEM 5 MG TABLET. PO ×2 (23:37)
[2017-12-07] MEDS: AMINO AC 3%/ELECTROLYTE/GLYCER 1,000 ML IV ×4 (04:39→17:15)
[2017-12-07 04:47] LABS: ADD MAN DIFF? NO
[2017-12-07 04:56] LABS: BASO % 0 % (0-3); EOS % 0 % (0-3); HEMATOCRIT 30.1 % (36.0-47.0); HEMOGLOBIN 10.1 g/dL (12.0-15.5); LYMPH # 0.9 x10^3/uL (1.0-4.8); LYMPH % 6 % (24-48); MEAN CORPUSCULAR HEMOGLOBIN 31 pg (25-35); MEAN CORPUSCULAR HGB CONC 34 g/dL (31-37); MEAN CORPUSCULAR VOLUME 92 fL (79-100); MONO # 0.5 x10^3/uL (0.0-1.1); MONO % 3 % (0-9); NEUT # 13.9 x10^3uL (1.8-7.7); NEUT % 91 % (31-73); PLATELET COUNT 201 x10^3/uL (140-400); RED BLOOD COUNT 3.26 x10^6/uL (3.50-5.40); RED CELL DISTRIBUTION WIDTH 14.5 % (11.5-14.5); WHITE BLOOD COUNT 15.3 x10^3/uL (4.0-11.0)
[2017-12-07 05:06] LABS: ANION GAP 7 (6-14); BLOOD UREA NITROGEN 24 mg/dL (7-20); CALCIUM 7.9 mg/dL (8.5-10.1); CARBON DIOXIDE 28 mmol/L (21-32); CHLORIDE 104 mmol/L (98-107); CREATININE 0.7 mg/dL (0.6-1.0); GFR 79.5; GLUCOSE 121 mg/dL (70-99); SODIUM 139 mmol/L (136-145)
[2017-12-07] MEDS: BUDESONIDE 0.5 MG/2 ML NEBU. NEB ×4 (07:14→18:50)
[2017-12-07] MEDS: IPRATRPIUM/ALBUTEROL 0.5/2.5MG 3 ML NEBU. NEB ×8 (07:14→18:50)
[2017-12-07] MEDS: VANCOMYCIN 125 MG/2.5 ML ORAL SOLUTION. PO ×8 (09:00→20:55)
[2017-12-07] MEDS: METOPROLOL TART IMMED RELEASE 25 MG TABLET. PO ×4 (09:00→20:55)
[2017-12-07] MEDS: FAMOTIDINE 20 MG TABLET. PO ×2 (09:00)
[2017-12-07] MEDS: CHOLECALCIFEROL (VITAMIN D3) 1,000 UNIT TABLET PO ×2 (09:03)
[2017-12-07] MEDS: LACTOBACILLUS RHAMNOSUS GG 1 CAPSULE. PO ×4 (09:03→20:55)
[2017-12-07] MEDS: MULTIVITAMIN with MINERAL TABLET. PO ×2 (09:03)
[2017-12-07] MEDS: predniSONE 5 MG TABLET PO ×2 (09:04)
[2017-12-07] MEDS: LEVOTHYROXINE 75 MCG TABLET PO ×2 (09:04)
[2017-12-07] MEDS: LORazepam 0.5 MG TABLET PO ×2 (09:04)
[2017-12-07 12:10] LABS: PHOSPHORUS 2.2 mg/dL (2.6-4.7)
[2017-12-07 12:10] LABS: MAGNESIUM 2.1 mg/dL (1.8-2.4)
[2017-12-07] MEDS: TPN PER PHARMACY MC ×2 (13:28)
[2017-12-07] MEDS: POTASSIUM PHOSPHATE DIBASIC 13.6 MMOL in IV NORMAL SALINE 100ML 100 ML IV (14:44)
[2017-12-07] MEDS: LATANOPROST 0.005% OPHTH SOLUTION 2.5ML BOTTLE. OU ×2 (20:55)
[2017-12-07] MEDS: TOTAL PARENTERAL NUTRITION IV ×2 (21:52)
[2017-12-07] MEDS: AMINO ACIDS IV ×2 (21:52)
[2017-12-07] MEDS: [UNRECOGNIZED DRUG - OTHER] IV ×2 (21:52)
[2017-12-07] MEDS: DEXTROSE 70% IV ×2 (21:52)
[2017-12-08 06:00] LABS: ALBUMIN 1.5 g/dL (3.4-5.0); ALBUMIN/GLOBULIN RATIO 0.4 (1.0-1.7); ALK PHOS 63 U/L (46-116); ALT (SGPT) 125 U/L (14-59); ANION GAP 3 (6-14); AST (SGOT) 120 U/L (15-37); BLOOD UREA NITROGEN 20 mg/dL (7-20); BUN/CREATININE RATIO 40 (6-20); CALCIUM 7.4 mg/dL (8.5-10.1); CARBON DIOXIDE 30 mmol/L (21-32); CHLORIDE 104 mmol/L (98-107); CREATININE 0.5 mg/dL (0.6-1.0); GFR 117.3; GLUCOSE 155 mg/dL (70-99); MAGNESIUM 2.1 mg/dL (1.8-2.4); PHOSPHORUS 2.1 mg/dL (2.6-4.7); POTASSIUM 4.3 mmol/L (3.5-5.1); SODIUM 137 mmol/L (136-145); TOTAL BILIRUBIN 0.2 mg/dL (0.2-1.0); TOTAL PROTEIN 5.4 g/dL (6.4-8.2); TRIGLYCERIDES 120 mg/dL (0-150)
[2017-12-08] MEDS: BUDESONIDE 0.5 MG/2 ML NEBU. NEB ×4 (06:58→18:25)
[2017-12-08] MEDS: IPRATRPIUM/ALBUTEROL 0.5/2.5MG 3 ML NEBU. NEB ×8 (06:58→18:25)
[2017-12-08] MEDS: LORazepam 0.5 MG TABLET PO ×2 (09:36)
[2017-12-08] MEDS: LACTOBACILLUS RHAMNOSUS GG 1 CAPSULE. PO ×4 (09:37→20:57)
[2017-12-08] MEDS: FAMOTIDINE 20 MG TABLET. PO ×2 (09:37)
[2017-12-08] MEDS: VANCOMYCIN 125 MG/2.5 ML ORAL SOLUTION. PO ×8 (09:37→20:57)
[2017-12-08] MEDS: LEVOTHYROXINE 75 MCG TABLET PO ×2 (09:37)
[2017-12-08] MEDS: METOPROLOL TART IMMED RELEASE 25 MG TABLET. PO ×4 (09:37→20:57)
[2017-12-08] MEDS: MULTIVITAMIN with MINERAL TABLET. PO ×2 (09:37)
[2017-12-08] MEDS: CHOLECALCIFEROL (VITAMIN D3) 1,000 UNIT TABLET PO ×2 (09:37)
[2017-12-08] MEDS: TPN PER PHARMACY MC ×2 (11:48)
[2017-12-08] MEDS: SODIUM PHOSPHATE 20 MMOL in IV NORMAL SALINE 250ML 250 ML IV (12:13)
[2017-12-08] MEDS: ZOLPIDEM 5 MG TABLET. PO ×2 (20:56)
[2017-12-08] MEDS: LATANOPROST 0.005% OPHTH SOLUTION 2.5ML BOTTLE. OU ×2 (20:57)
[2017-12-08] MEDS: [UNRECOGNIZED DRUG - OTHER] IV ×2 (21:02)
[2017-12-08] MEDS: AMINO ACIDS IV ×2 (21:02)
[2017-12-08] MEDS: DEXTROSE 70% IV ×2 (21:02)
[2017-12-08] MEDS: TOTAL PARENTERAL NUTRITION IV ×2 (21:02)
[2017-12-09 05:12] LABS: ANION GAP 6 (6-14); BLOOD UREA NITROGEN 19 mg/dL (7-20); CALCIUM 7.9 mg/dL (8.5-10.1); CARBON DIOXIDE 30 mmol/L (21-32); CHLORIDE 105 mmol/L (98-107); CREATININE 0.4 mg/dL (0.6-1.0); GFR 151.7; GLUCOSE 174 mg/dL (70-99); MAGNESIUM 2.1 mg/dL (1.8-2.4); PHOSPHORUS 2.3 mg/dL (2.6-4.7); POTASSIUM 4.4 mmol/L (3.5-5.1); SODIUM 141 mmol/L (136-145)
[2017-12-09] MEDS: IPRATRPIUM/ALBUTEROL 0.5/2.5MG 3 ML NEBU. NEB ×8 (07:17→19:28)
[2017-12-09] MEDS: BUDESONIDE 0.5 MG/2 ML NEBU. NEB ×4 (07:18→19:28)
[2017-12-09] MEDS: FAMOTIDINE 20 MG TABLET. PO ×2 (09:00)
[2017-12-09] MEDS: METOPROLOL TART IMMED RELEASE 25 MG TABLET. PO ×4 (09:00→20:09)
[2017-12-09] MEDS: VANCOMYCIN 125 MG/2.5 ML ORAL SOLUTION. PO ×8 (09:02→21:13)
[2017-12-09] MEDS: LEVOTHYROXINE 75 MCG TABLET PO ×2 (09:02)
[2017-12-09] MEDS: LACTOBACILLUS RHAMNOSUS GG 1 CAPSULE. PO ×4 (09:02→21:13)
[2017-12-09] MEDS: MULTIVITAMIN with MINERAL TABLET. PO ×2 (09:02)
[2017-12-09] MEDS: CHOLECALCIFEROL (VITAMIN D3) 1,000 UNIT TABLET PO ×2 (09:02)
[2017-12-09] MEDS: LORazepam 0.5 MG TABLET PO ×2 (09:02)
[2017-12-09] MEDS: IV NORMAL SALINE 250ML 250 ML IV ×2 (11:30)
[2017-12-09] MEDS: IV NORMAL SALINE 1000ML BAG 1,000 ML IV ×4 (11:36→21:15)
[2017-12-09] MEDS: TPN PER PHARMACY MC ×2 (13:23)
[2017-12-09] MEDS ORDERED: POTASSIUM PHOSPHATE DIBASIC 10 MMOL in IV NORMAL SALINE 100ML 100 ML IV (14:00)
[2017-12-09] MEDS: POTASSIUM PHOSPHATE DIBASIC 10 MMOL in IV NORMAL SALINE 100ML 100 ML IV (14:00)
[2017-12-09] MEDS: LATANOPROST 0.005% OPHTH SOLUTION 2.5ML BOTTLE. OU ×2 (21:13)
[2017-12-09] MEDS: ZOLPIDEM 5 MG TABLET. PO ×2 (21:13)
[2017-12-09] MEDS: TOTAL PARENTERAL NUTRITION IV ×2 (21:14)
[2017-12-09] MEDS: DEXTROSE 70% IV ×2 (21:14)
[2017-12-09] MEDS: AMINO ACIDS IV ×2 (21:14)
[2017-12-09] MEDS: [UNRECOGNIZED DRUG - OTHER] IV ×2 (21:14)
[2017-12-10 05:18] LABS: ADD MAN DIFF? NO
[2017-12-10 05:27] LABS: BASO % 0 % (0-3); EOS # 0.1 x10^3/uL (0.0-0.7); EOS % 1 % (0-3); HEMATOCRIT 31.6 % (36.0-47.0); HEMOGLOBIN 10.2 g/dL (12.0-15.5); LYMPH # 0.3 x10^3/uL (1.0-4.8); LYMPH % 3 % (24-48); MEAN CORPUSCULAR HEMOGLOBIN 31 pg (25-35); MEAN CORPUSCULAR HGB CONC 32 g/dL (31-37); MEAN CORPUSCULAR VOLUME 95 fL (79-100); MONO # 0.2 x10^3/uL (0.0-1.1); MONO % 3 % (0-9); NEUT # 8.9 x10^3uL (1.8-7.7); NEUT % 93 % (31-73); PLATELET COUNT 212 x10^3/uL (140-400); RED BLOOD COUNT 3.33 x10^6/uL (3.50-5.40); RED CELL DISTRIBUTION WIDTH 15.2 % (11.5-14.5); WHITE BLOOD COUNT 9.6 x10^3/uL (4.0-11.0)
[2017-12-10 05:48] LABS: ANION GAP 3 (6-14); BLOOD UREA NITROGEN 17 mg/dL (7-20); CALCIUM 7.5 mg/dL (8.5-10.1); CARBON DIOXIDE 31 mmol/L (21-32); CHLORIDE 106 mmol/L (98-107); CREATININE 0.4 mg/dL (0.6-1.0); GFR 151.7; GLUCOSE 142 mg/dL (70-99); MAGNESIUM 2.1 mg/dL (1.8-2.4); PHOSPHORUS 2.8 mg/dL (2.6-4.7); POTASSIUM 4.6 mmol/L (3.5-5.1); SODIUM 140 mmol/L (136-145)
[2017-12-10] MEDS: LEVOTHYROXINE 75 MCG TABLET PO ×2 (07:57)
[2017-12-10] MEDS: IPRATRPIUM/ALBUTEROL 0.5/2.5MG 3 ML NEBU. NEB ×8 (08:41→19:15)
[2017-12-10] MEDS: BUDESONIDE 0.5 MG/2 ML NEBU. NEB ×4 (08:41→19:15)
[2017-12-10] MEDS: FAMOTIDINE 20 MG TABLET. PO ×2 (09:32)
[2017-12-10] MEDS: MULTIVITAMIN with MINERAL TABLET. PO ×2 (09:32)
[2017-12-10] MEDS: LORazepam 0.5 MG TABLET PO ×2 (09:32)
[2017-12-10] MEDS: VANCOMYCIN 125 MG/2.5 ML ORAL SOLUTION. PO ×8 (09:32→21:11)
[2017-12-10] MEDS: METOPROLOL TART IMMED RELEASE 25 MG TABLET. PO ×4 (09:32→21:12)
[2017-12-10] MEDS: LACTOBACILLUS RHAMNOSUS GG 1 CAPSULE. PO ×4 (09:32→21:11)
[2017-12-10] MEDS: CHOLECALCIFEROL (VITAMIN D3) 1,000 UNIT TABLET PO ×2 (09:33)
[2017-12-10] MEDS: IV NORMAL SALINE 1000ML BAG 1,000 ML IV ×2 (11:12)
[2017-12-10] MEDS: TPN PER PHARMACY MC ×2 (13:44)
[2017-12-10] MEDS: VITS A & D/LANOLIN TOPICAL OINTMENT 56GM TUBE. TP ×4 (17:00→21:00)
[2017-12-10] MEDS: LATANOPROST 0.005% OPHTH SOLUTION 2.5ML BOTTLE. OU ×2 (21:12)
[2017-12-10] MEDS: AMINO ACIDS IV ×2 (22:00)
[2017-12-10] MEDS: [UNRECOGNIZED DRUG - OTHER] IV ×2 (22:00)
[2017-12-10] MEDS: DEXTROSE 70% IV ×2 (22:00)
[2017-12-10] MEDS: TOTAL PARENTERAL NUTRITION IV ×2 (22:00)
[2017-12-11] MEDS: ALBUTEROL SULFATE 2.5 MG/3 ML NEBU. NEB ×2 (03:15)
[2017-12-11 04:41] LABS: ANION GAP 5 (6-14); BLOOD UREA NITROGEN 17 mg/dL (7-20); CALCIUM 7.9 mg/dL (8.5-10.1); CARBON DIOXIDE 28 mmol/L (21-32); CHLORIDE 106 mmol/L (98-107); CREATININE 0.4 mg/dL (0.6-1.0); GFR 151.7; GLUCOSE 149 mg/dL (70-99); MAGNESIUM 2.1 mg/dL (1.8-2.4); POTASSIUM 4.4 mmol/L (3.5-5.1); SODIUM 139 mmol/L (136-145)
[2017-12-11] MEDS: IPRATRPIUM/ALBUTEROL 0.5/2.5MG 3 ML NEBU. NEB ×8 (07:25→19:25)
[2017-12-11] MEDS: BUDESONIDE 0.5 MG/2 ML NEBU. NEB ×4 (07:25→19:25)
[2017-12-11] MEDS: LEVOTHYROXINE 75 MCG TABLET PO ×2 (07:30)
[2017-12-11] MEDS: VITS A & D/LANOLIN TOPICAL OINTMENT 56GM TUBE. TP ×6 (08:00→21:05)
[2017-12-11] MEDS: CHOLECALCIFEROL (VITAMIN D3) 1,000 UNIT TABLET PO ×2 (09:00)
[2017-12-11] MEDS: MULTIVITAMIN with MINERAL TABLET. PO ×2 (09:00)
[2017-12-11] MEDS: LORazepam 0.5 MG TABLET PO ×2 (09:00)
[2017-12-11] MEDS: VANCOMYCIN 125 MG/2.5 ML ORAL SOLUTION. PO ×8 (09:00→21:05)
[2017-12-11] MEDS: FAMOTIDINE 20 MG TABLET. PO ×2 (09:00)
[2017-12-11] MEDS: LACTOBACILLUS RHAMNOSUS GG 1 CAPSULE. PO ×6 (09:00→21:05)
[2017-12-11] MEDS: METOPROLOL TART IMMED RELEASE 25 MG TABLET. PO ×4 (09:00→21:00)
[2017-12-11] MEDS: TPN PER PHARMACY MC ×2 (14:03)
[2017-12-11] MEDS: IV NORMAL SALINE 1000ML BAG 1,000 ML IV ×2 (20:15)
[2017-12-11] MEDS: LATANOPROST 0.005% OPHTH SOLUTION 2.5ML BOTTLE. OU ×2 (21:05)
[2017-12-11] MEDS: DEXTROSE 70% IV ×2 (22:05)
[2017-12-11] MEDS: TOTAL PARENTERAL NUTRITION IV ×2 (22:05)
[2017-12-11] MEDS: AMINO ACIDS IV ×2 (22:05)
[2017-12-11] MEDS: [UNRECOGNIZED DRUG - OTHER] IV ×2 (22:05)
[2017-12-12 06:54] LABS: ANION GAP 7 (6-14); BLOOD UREA NITROGEN 17 mg/dL (7-20); CALCIUM 7.9 mg/dL (8.5-10.1); CARBON DIOXIDE 26 mmol/L (21-32); CHLORIDE 106 mmol/L (98-107); CREATININE 0.5 mg/dL (0.6-1.0); GFR 117.3; GLUCOSE 145 mg/dL (70-99); POTASSIUM 4.6 mmol/L (3.5-5.1); SODIUM 139 mmol/L (136-145)
[2017-12-12] MEDS: IPRATRPIUM/ALBUTEROL 0.5/2.5MG 3 ML NEBU. NEB ×8 (07:38→19:14)
[2017-12-12] MEDS: BUDESONIDE 0.5 MG/2 ML NEBU. NEB ×4 (07:38→19:14)
[2017-12-12] MEDS: LEVOTHYROXINE 75 MCG TABLET PO ×2 (07:38)
[2017-12-12] MEDS: VITS A & D/LANOLIN TOPICAL OINTMENT 56GM TUBE. TP ×6 (09:02→21:50)
[2017-12-12] MEDS: LORazepam 0.5 MG TABLET PO ×2 (09:09)
[2017-12-12] MEDS: FAMOTIDINE 20 MG TABLET. PO ×2 (09:09)
[2017-12-12] MEDS: LACTOBACILLUS RHAMNOSUS GG 1 CAPSULE. PO ×4 (09:09→21:50)
[2017-12-12] MEDS: VANCOMYCIN 125 MG/2.5 ML ORAL SOLUTION. PO ×8 (09:09→21:50)
[2017-12-12] MEDS: CHOLECALCIFEROL (VITAMIN D3) 1,000 UNIT TABLET PO ×2 (09:09)
[2017-12-12] MEDS: MULTIVITAMIN with MINERAL TABLET. PO ×2 (09:09)
[2017-12-12] MEDS: METOPROLOL TART IMMED RELEASE 25 MG TABLET. PO ×4 (09:10→19:54)
[2017-12-12] MEDS: IV NORMAL SALINE 1000ML BAG 1,000 ML IV ×2 (20:11)
[2017-12-12] MEDS: LATANOPROST 0.005% OPHTH SOLUTION 2.5ML BOTTLE. OU ×2 (21:42)
[2017-12-12] MEDS: ZOLPIDEM 5 MG TABLET. PO ×2 (22:52)
[2017-12-12] MEDS: ACETAMINOPHEN 325 MG TABLET. PO ×2 (22:53)
[2017-12-13 06:12] LABS: ANION GAP 5 (6-14); BLOOD UREA NITROGEN 21 mg/dL (7-20); CALCIUM 7.5 mg/dL (8.5-10.1); CARBON DIOXIDE 30 mmol/L (21-32); CHLORIDE 106 mmol/L (98-107); CREATININE 0.6 mg/dL (0.6-1.0); GLUCOSE 82 mg/dL (70-99); POTASSIUM 4.7 mmol/L (3.5-5.1); SODIUM 141 mmol/L (136-145)
[2017-12-13] MEDS: LEVOTHYROXINE 75 MCG TABLET PO ×2 (07:30)
[2017-12-13] MEDS: IPRATRPIUM/ALBUTEROL 0.5/2.5MG 3 ML NEBU. NEB ×4 (07:33→11:30)
[2017-12-13] MEDS: BUDESONIDE 0.5 MG/2 ML NEBU. NEB ×2 (07:33)
[2017-12-13] MEDS: METOPROLOL TART IMMED RELEASE 25 MG TABLET. PO ×2 (09:00)
[2017-12-13] MEDS: VITS A & D/LANOLIN TOPICAL OINTMENT 56GM TUBE. TP ×4 (09:00→14:00)
[2017-12-13] MEDS: FAMOTIDINE 20 MG TABLET. PO ×2 (09:00)
[2017-12-13] MEDS: VANCOMYCIN 125 MG/2.5 ML ORAL SOLUTION. PO ×4 (09:00→13:00)
[2017-12-13] MEDS: LORazepam 0.5 MG TABLET PO ×2 (09:00)
[2017-12-13] MEDS: LACTOBACILLUS RHAMNOSUS GG 1 CAPSULE. PO ×2 (09:00)
[2017-12-13] MEDS: CHOLECALCIFEROL (VITAMIN D3) 1,000 UNIT TABLET PO ×2 (09:00)
[2017-12-13] MEDS: MULTIVITAMIN with MINERAL TABLET. PO ×2 (09:00)
[2017-12-13] MEDS: IV NORMAL SALINE 1000ML BAG 1,000 ML IV ×2 (09:25)
== END 2017-12-13 17:43 | DRG 871 ==
LOC: 1 WEST ICU 12-01 08:35 → ER 11:37 → 5 NORTH 12-02 20:08 → 5 SOUTH 14:01
PROC: 5A09357 Assistance with Respiratory Ventilation, Less than 24 Consecutive Hours, Continuous Positive Airway Pressure (ICD-10-PCS; principal; 2017-11-28)
PROC: 30233N1 Transfusion of Nonautologous Red Blood Cells into Peripheral Vein, Percutaneous Approach (ICD-10-PCS; 2017-12-01)
PROC: 02HV33Z Insertion of Infusion Device into Superior Vena Cava, Percutaneous Approach (ICD-10-PCS; 2017-12-06)
PROC: 3E0336Z Introduction of Nutritional Substance into Peripheral Vein, Percutaneous Approach (ICD-10-PCS; 2017-12-09)
DX: A41.9 Sepsis, unspecified organism (principal); E43 Unspecified severe protein-calorie malnutrition; J96.21 Acute and chronic respiratory failure with hypoxia; J69.0 Pneumonitis due to inhalation of food and vomit; L89.152 Pressure ulcer of sacral region, stage 2; A04.72 Enterocolitis due to Clostridium difficile, not specified as recurrent; I48.92 Unspecified atrial flutter; E87.1 Hypo-osmolality and hyponatremia; J44.0 Chronic obstructive pulmonary disease with (acute) lower respiratory infection; J44.1 Chronic obstructive pulmonary disease with (acute) exacerbation; N39.0 Urinary tract infection, site not specified; D62 Acute posthemorrhagic anemia; Z51.5 Encounter for palliative care; Z66 Do not resuscitate; E86.9 Volume depletion, unspecified; D50.0 Iron deficiency anemia secondary to blood loss (chronic); B37.9 Candidiasis, unspecified; B96.20 Unspecified Escherichia coli [E. coli] as the cause of diseases classified elsewhere; B96.89 Other specified bacterial agents as the cause of diseases classified elsewhere; E03.9 Hypothyroidism, unspecified; E78.00 Pure hypercholesterolemia, unspecified; F41.1 Generalized anxiety disorder; H40.9 Unspecified glaucoma; I10 Essential (primary) hypertension; J10.1 Influenza due to other identified influenza virus with other respiratory manifestations; K21.9 Gastro-esophageal reflux disease without esophagitis; K58.9 Irritable bowel syndrome, unspecified; M17.0 Bilateral primary osteoarthritis of knee; M53.3 Sacrococcygeal disorders, not elsewhere classified; M81.0 Age-related osteoporosis without current pathological fracture; R04.0 Epistaxis; Y95 Nosocomial condition; W18.2XXA Fall in (into) shower or empty bathtub, initial encounter; Y92.231 Patient bathroom in hospital as the place of occurrence of the external cause; K57.90 Diverticulosis of intestine, part unspecified, without perforation or abscess without bleeding; M19.90 Unspecified osteoarthritis, unspecified site; Y99.8 Other external cause status; Z80.3 Family history of malignant neoplasm of breast; Z82.3 Family history of stroke; Z82.49 Family history of ischemic heart disease and other diseases of the circulatory system; Z87.19 Personal history of other diseases of the digestive system; Z87.891 Personal history of nicotine dependence; Z90.710 Acquired absence of both cervix and uterus; Y93.E1 Activity, personal bathing and showering; Z98.42 Cataract extraction status, left eye; Z98.41 Cataract extraction status, right eye; Z68.22 Body mass index [BMI] 22.0-22.9, adult; Z90.49 Acquired absence of other specified parts of digestive tract; Z90.722 Acquired absence of ovaries, bilateral; Z88.0 Allergy status to penicillin; Z88.8 Allergy status to other drugs, medicaments and biological substances
CPT/HCPCS: 36415; 36569; 71045; 71250; 74018; 74230; 80048; 80053; 80202; 81001; 82274; 82553; 82565; 82805; 83605; 83735; 83880; 84100; 84478; 85007; 85014; 85018; 85025; 85027; 85610; 86850; 86900; 86901; 86920; 87040; 87086; 87186; 87324; 87641; 92526-GN; 92610-GN; 92611-GN; 93005; 93970; 94640; 94760; 97110-GP; 97116-GP; 97162-GP; 97166-GO; 97530-GO; 97530-GP; 97535-GO; J0610; J1940; J1956; J2020; J2060; J2248; J2543; J2920; J2930; J3370; J3475; J7030; J7040; J7050; J7512; J7613; J7620; J7626; P9016